=== PATIENT | male | born 2000 | race Caucasian/White ===

== ENCOUNTER → 2020-01-20 | Outpatient (CLI) | payer OTHER ==
--- NOTE | 2020-01-20 11:28 | PFTRPT ---
Height: 69.00 Inches Weight: 185.00 Lbs BSA: 2.00 Diagnosis: SOB DATE: 01/20/2020 ORDERING PHYSICIAN: ARIC Melo Pre and post bronchodilator studies have excellent technical quality. Forced vital capacity is normal. FEV1 is in proportion. Obstructive index is therefore normal. Expiratory limit of the flow-volume loop is reasonably normal. No significant bronchodilator response is identified. Total lung capacity is normal. Residual volume is in proportion. Diffusing capacity is normal. No hemoglobin available for correction. Airway resistance and conductance are normal. IMPRESSION: Essentially normal study. MTDD
== END ==
LOC: M CARPUL 10:47
PROVIDERS: ATTEND Physician Assistant
DX: R06.00 Dyspnea, unspecified (principal)

== ENCOUNTER → 2020-04-27 | Outpatient (CLI) | payer OTHER ==
[~2020-04-27] MED LIST: METHACHOLINE KIT (J7674) INH ONE
--- NOTE | 2020-04-27 13:30 | PFTRPT ---
Site: [facility], [address] [place], [address] ID: [id number] Name: CHEO VAZQUEZ Visit Date: 04/27/2020 Second ID: [id number] Referring Doctor: Mady Juan Reviewing Doctor: Ben Boateng MD [employer] Worker: Claribel SRINIVASAN RRT Age: 19 : 2000 Sex: Male Race: Height: 69.00 Inches Weight: 180.00 Lbs BSA: 1.98 Order IDs: [id number] Requested Test(s): <RESP-PFT.METH CHAL> Diagnosis: ESCAMILLA of albuterol for post bronchodilator. Review Status: Not Reviewed Pre-Bronch Post-Bronch Pred Actual %Pred Actual %Chng SPIROMETRY FVC (L) 5.43 5.46 100 5.14 -5 FEV1 (L) 4.54 4.71 103 4.60 -2 FEV1/FVC (%) 84 86 102 89 3 FEF 25% (L/sec) 8.44 9.80 116 8.28 -15 FEF 50% (L/sec) 5.94 5.36 90 5.50 2 FEF 75% (L/sec) 2.33 2.69 115 2.61 -2 FEF 25-75% (L/sec) 4.85 5.01 103 4.85 -3 FEF Max (L/sec) 9.87 9.93 100 8.36 -15 FIVC (L) 5.35 5.09 -4 FIF 50% (L/sec) 5.74 8.32 144 8.36 FIF Max (L/sec) 8.34 8.37 Expiratory Time (sec) 6.47 3.54 -45 Back Extrap Vol (L) 0.24 0.15 -35 Time To FEFmax (sec) 0.110 0.139 26
== END ==
LOC: M CARPUL 12:50
DX: R06.00 Dyspnea, unspecified (principal)